=== PATIENT | male | born 1965 | race Caucasian/White ===

== ENCOUNTER → 2016-04-04 | Outpatient (REF) | payer BC ==
[2016-04-04 16:08] LABS: BASOPHILS % (AUTO) 0 % (0-2); EOSINOPHILS % (AUTO) 1 % (0-4); LYMPHOCYTES # (AUTO) 2.8 X10^3; MEAN CORPUSCULAR HEMOGLOBIN 30.7 PG (26.0-34.0); MEAN CORPUSCULAR HGB CONC 35.2 g/dL (31.0-37.0); MEAN CORPUSCULAR VOLUME 87 FL (80-100); MEAN PLATELET VOLUME 10.6 FL (6.0-9.5); MONOCYTES # (AUTO) 0.7 X10^3; MONOCYTES % (AUTO) 9 % (3-11); NEUTROPHILS # (AUTO) 4.4 X10^3; NEUTROPHILS % (AUTO) 55 % (51-67); PLATELET COUNT 205 10^3uL (150-450); WHITE BLOOD COUNT 8.04 10^3uL (4.0-11.0)
[2016-04-04 17:12] LABS: ANION GAP 17.9 MEQ/L (3-15)
== END ==
LOC: LAB 15:42
PROVIDERS: ATTEND Family Medicine
DX: R53.83 Other fatigue (principal); I10 Essential (primary) hypertension; E03.8 Other specified hypothyroidism; E66.09 Other obesity due to excess calories; Z72.0 Tobacco use
CPT/HCPCS: 80048; 83036; 83540; 83550; 84403; 84439; 84443; 84481; 85025

== ENCOUNTER → 2016-07-06 | Outpatient (CLI) | payer BC ==
[~2016-07-06] MED LIST: ASPI-860 PO; CYCL10TA45 PO; GABA300C PO; HYDR-3702 PO; HYDR-3811 PO; HYDR-3881 PO; LIOT25TA3 PO; MORP30TA91 PO; OMEP40CA3 PO; PRED20TA PO; QTP100T PO; SERT50TA2 PO; lisinopril PO
[2016-07-06 08:39] LABS: MEAN CORPUSCULAR HEMOGLOBIN 30.1 PG (26.0-34.0); MEAN CORPUSCULAR HGB CONC 33.9 g/dL (31.0-37.0); MEAN PLATELET VOLUME 9.6 FL (6.0-9.5); WHITE BLOOD COUNT 6.45 10^3uL (4.0-11.0)
[2016-07-06 09:25] LABS: ALBUMIN 4.3 g/dL (3.4-5.0); ANION GAP 15.2 MEQ/L (3-15); TOTAL PROTEIN 7.3 g/dL (6.4-8.5)
[2016-07-06 15:51] LABS: CORTISOL AM 7 ug/dL (3-20); TESTOSTERONE TOTAL SERUM C 332 ng/dL (221-716)
[2016-07-06 16:27] LABS: VITAMIN B 12 590 pg/mL (213-816)
[2016-07-10 11:11] LABS: ADRENOCORTICOTROPIC HORMONE <5.0 pg/mL
== END ==
LOC: LAB 08:18
PROVIDERS: ATTEND Internal Medicine
DX: R53.83 Other fatigue (principal); E03.9 Hypothyroidism, unspecified
CPT/HCPCS: 36415; 80053; 82024; 82533; 82607; 83001; 83002; 84146; 84153; 84270; 84403; 84439; 84443; 84481; 85027; 86376

== ENCOUNTER → 2016-07-11 | Outpatient (CLI) | payer BC | LOC: LAB 09:27 | PROVIDERS: ATTEND Internal Medicine | DX: R53.83 Other fatigue (principal); E03.9 Hypothyroidism, unspecified | CPT/HCPCS: 86376 ==